=== PATIENT | female | born 1975 | race Caucasian/White ===

== ENCOUNTER 2020-11-12 17:21 | Emergency (ER) | payer SELFPAY ==
--- NOTE | 2020-11-12 17:27 | ED.SKABFB ---
HPI - Skin/Abscess/Foreign Bdy General Chief complaint: Skin/Abscess/Foreign Body Stated complaint: infected finger Time Seen by Provider: 11/12/20 17:27 Source: patient and RN notes reviewed Mode of arrival: ambulatory Limitations: no limitations History of Present Illness HPI narrative: 45-year-old female presents with concern for pain, swelling, redness near the lateral nail bed of the second digit of the right hand. Reports she has been using Betadine on the finger. Denies other intervention. She reports symptoms have been present for 5 days, but worsened yesterday. She denies any decreased sensation, range of motion in the digit. MD complaint: other Related Data Allergies Allergy/AdvReac Type Severity Reaction Status Date / Time No Known Allergies Allergy Verified 11/12/20 17:26 Review of Systems Review of Systems: Narrative: CONSTITUTIONAL: Denies malaise, chills, sweats, or fever. SKIN: Reports pain, redness, swelling at the lateral edge of the nailbed of the second digit of the right hand MUSCULOSKELETAL: Denies musculoskeletal pain, decreased range of motion NEUROLOGIC: Denies numbness, weakness All systems reviewed & are unremarkable except as noted in HPI and below PMFSH Family History Family History (Updated 09/19/14 @ 08:52 by DOCTOR UNKNOWN) Other Diabetes mellitus Hypertension Social History Social History Smoking status: Heavy tobacco smoker Alcohol intake: current Comments At time of signature, agree with nursing past medical, surgical, social and family history. There is no relevant family history pertinent to the presenting complaint Exam Narrative: Exam Narrative: GENERAL: Well-appearing, well-nourished, and in no acute distress. HEAD: Normocephalic EYES: PERRLA, conjunctivae clear NECK: Supple. CHEST: Speaks in full sentences. No respiratory distress. HEART: Regular rate and rhythm. Normal and equal peripheral pulses. EXTREMITIES: Second digit of right hand has normal strength and sensation. 5/5 strength with digit flexion, extension. Range of motion normal. No cyanosis, or edema noted. Tenderness noted at the lateral edge of the distal end of the digit near the nailbed. Skin intact. Good capillary refill and radial pulse. Distal capillary refill less than 3 seconds. SKIN: Warn, dry, intact, pink. Erythema, mild edema without fluctuance noted to the lateral edge of the nailbed of the second digit of the right hand consistent with paronychia NEURO: Alert and oriented x3. PSYCH: Normal mood and affect Course Course Emergency Course: Patient is aware of diagnosis, understands and agrees to treatment plan. Anticipatory guidance given. Patient agrees to follow-up as directed and is aware of reasons to seek care at the emergency department. Portions of this record may have been created with voice recognition software Vital Signs Vital signs: Vital Signs Temperature 97.6 F 11/12/20 17:30 Pulse Rate 87 11/12/20 17:30 Respiratory Rate 16 11/12/20 17:30 Blood Pressure 118/60 11/12/20 17:30 Pulse Oximetry 100 11/12/20 17:30 Temperature 97.6 F 11/12/20 17:30 Pulse Rate 87 11/12/20 17:30 Respiratory Rate 16 11/12/20 17:30 Blood Pressure 118/60 11/12/20 17:30 Pulse Oximetry 100 11/12/20 17:30 Reviewed. MDM - Skin/Abscess/Foreign Bdy MDM Narrative Medical decision making narrative: Exam findings show no acute concerns or changes; patient is non-toxic appearing and is in no distress. Patient is appropriate for outpatient treatment and follow-up. Critical Care Time Critical Care Time Critical Care Time: No Discharge Plan Discharge Clinical Impression: Paronychia Patient Disposition: Home, Self-Care Condition: Stable Instructions: Antibiotic Form, Paronychia (ED) Additional Instructions: Soak your nail: Soak your nail in a mixture of equal parts vinegar and water 3 or 4 times each day. This will help decrease inflammation. Apply a
[2020-11-12 17:30] VITALS: BP 118/60; PULSE 87; RESP 16; TEMP 36.4; O2SAT 100
== END 2020-11-12 17:40 | disposition home or self-care (01) ==
PROVIDERS: Emergency Provider Nurse Practitioner; PCP Internal Medicine
DX: L03.011 Cellulitis of right finger (principal)
CPT/HCPCS: 99213; G0463

== ENCOUNTER 2020-11-14 09:34 | Emergency (ER) | payer SELFPAY ==
[2020-11-14 09:51] VITALS: BP 113/81; PULSE 81; RESP 16; TEMP 36.7; O2SAT 99
--- NOTE | 2020-11-14 10:23 | ED.GENADULT ---
HPI - General Adult General Chief complaint: Skin/Abscess/Foreign Body Stated complaint: pos finger infection Time Seen by Provider: 11/14/20 10:23 Source: patient and RN notes reviewed Mode of arrival: ambulatory Limitations: no limitations History of Present Illness HPI narrative: 45-year-old female presents with complaints of RT second (index) finger swelling, warmth, tenderness, and redness for the past 7 days. Millie reports receiving treatment and on antibiotic for 2.5 days with increasing pain and swelling to RT index (second) finger for the past 48 hours. Ibuprofen and Bactrim without relief. No known injury. Denies numbness or tingling. No weakness of finger. Denies fever or chills. Denies immobility. Exacerbation is movement and palpation of finger. No relieving factor. Denies break in skin or drainage. Denies abdominal pain, nausea, or vomiting. Tolerating po intake well. No history of MRSA. Dominant hand is the RIGHT HAND. Tetanus not up-to-date. LMP 5 years ago due to IUD in place. The patient reports she have not been diagnosed with COVID-19. The patient reports she is not waiting for the results of a COVID-19 lab test. The patient reports she do not have weakness or fatigue. The patient reports she do not have a new or worsening cough or shortness of breath. Denies chest pain. The patient reports she do not have any rhinorrhea, congestion, sore throat, loss of taste or smell, and diarrhea. Denies recent traveling. Denies concerns for COVID-19 or exposures been home with limited outdoor exposure except for essential household needs, work, and return home. At this time, patient is not suspected of having COVID-19. Some parts of this dictation were generated by voice recognition software and may contain typographical and/or grammatical inaccuracies. Related Data Allergies Allergy/AdvReac Type Severity Reaction Status Date / Time No Known Allergies Allergy Verified 11/14/20 09:47 Review of Systems Review of Systems: Narrative: CONSTITUTIONAL: Denies fever, chills, sweats. EYES: Denies visual changes, redness, discharge. ENT: Denies rhinorrhea, congestion, sore throat, otalgia. CARDIOVASCULAR: Denies chest pain, palpitations, edema. RESPIRATORY: Denies dyspnea, wheezing, cough. GASTROINTESTINAL: Denies abdominal pain, nausea, vomiting, diarrhea. SKIN: Denies rash or itching. Complains of RT second (index) finger swelling, warmth, tenderness, and redness. MUSCULOSKELETAL: Denies acute back pain or myalgia. Complains of RT second (index) finger swelling, warmth, tenderness, and redness. NEUROLOGIC: Denies numbness or focal weakness. PSYCHIATRIC: Denies anxiety or depression. All other systems reviewed are negative, except as documented in HPI and below. [facility] Past Medical History Medical History (Updated 11/14/20 @ 11:18 by LUIS E Chino) No significant past medical history Surgical History Surgical History (Updated 11/14/20 @ 10:44 by LUIS E Chino) No significant past surgical history Family History Family History (Updated 11/14/20 @ 10:45 by LUIS E Chino) Father Alive and well Mother Alive and well Other Diabetes mellitus Hypertension Social History Social History (Updated 11/14/20 @ 10:46 by LUIS E Chino) Smoking packs per day: 0.5 Smoking cigarettes per day: 10.0 Years smoked: 25 Smoking pack-years: 12.50 Smoking status: Current every day smoker Tobacco type: cigarettes Second hand tobacco smoke exposure: Yes Alcohol intake: former Substance use: never Living arrangements: with family Occupation/Education: occupation 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
[2020-11-14] MEDS: TETANUS,DIPHTHERIA,AC PERTUSSIS ADULT (0.5 ML) BOOSTRIX IM (10:37)
[2020-11-14] MEDS: KETOROLAC (*BKC) 60 MG/2 ML VIAL IM (10:39)
== END 2020-11-14 11:07 | disposition home or self-care (01) ==
PROVIDERS: Emergency Provider Nurse Practitioner Family
DX: L03.012 Cellulitis of left finger (principal); Z23 Encounter for immunization; F17.210 Nicotine dependence, cigarettes, uncomplicated
CPT/HCPCS: 10060; 90471; 90715; 96372; 99213; G0463; J1885

== ENCOUNTER 2021-10-10 13:19 | Emergency (ER) | payer OTHER, SELFPAY ==
[2021-10-10 13:41] VITALS: BP 94/61; PULSE 88; RESP 16; TEMP 36.6; O2SAT 98
[2021-10-10 14:38] VITALS: BP 133/77; PULSE 99; RESP 16; TEMP 37.1; O2SAT 100
--- NOTE | 2021-10-10 14:40 | ED.DENTAL ---
HPI - Dental/Oral General Chief complaint: Dental/Oral Stated complaint: Tooth pain Source: patient Mode of arrival: ambulatory Limitations: no limitations History of Present Illness HPI Narrative: Patient presents for evaluation of right lower dental pain since yesterday. She states she had flossed a few days prior and has had pain following flossing in the past. No known dental fracture. No fever, chills, nausea, vomiting. She is a current everyday smoker and states that she has undergone gum treatments in the past. She states she has not followed up on dental cleanings as of late. She has not tried any therapies to assist with her symptoms. She states she switched from floss to water pick in past and she tolerated this much better. No additional complaints or concerns Related Data Allergies Allergy/AdvReac Type Severity Reaction Status Date / Time No Known Allergies Allergy Verified 10/10/21 13:40 Review of Systems Review of Systems: CONSTITUTIONAL: Denies fever, chills, or sweats. EYES: Denies visual changes, redness, or discharge. ENT: Reports right lower dental pain. Denies rhinorrhea, congestion, sore throat, or otalgia. CARDIOVASCULAR: Denies chest pain, palpitations, or edema. RESPIRATORY: Denies cough or dyspnea. GASTROINTESTINAL: Denies abdominal pain, nausea, vomiting, or diarrhea. GENITOURINARY: Denies dysuria or hematuria. SKIN: Denies rash or itching. MUSCULOSKELETAL: Denies back pain, joint pain, or myalgia. NEUROLOGIC: Denies headache, numbness, dizziness, or weakness. PSYCHIATRIC: Denies anxiety or depression. [facility] [place] Past Medical History Medical History Acute eczematoid otitis externa, right ear Gingivitis No significant past medical history Pain, dental Surgical History Surgical History No significant past surgical history Family History Family History Father Alive and well Mother Alive and well Other Diabetes mellitus Hypertension Social History Social History Smoking packs per day: 0.5 Smoking cigarettes per day: 10.0 Years smoked: 25 Smoking pack-years: 12.50 Smoking status: Current every day smoker Tobacco type: cigarettes Second hand tobacco smoke exposure: Yes Alcohol intake: former Substance use: never 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 HEAD: Normocephalic, atraumatic. EYES: PERRLA and EOMI. ENT: Nares clear, no rhinorrhea or epistaxis. Mucous membranes moist. Oropharynx without tonsillar hypertrophy exudate or other lesions. There is tenderness in the gumline adjacent to tooth #29. There is no visible or palpable abscess. No visualized dental fracture. No trismus. Bilateral TMs pearly henriquez nonbulging NECK: Supple. No adenopathy or masses. No carotid bruits or JVD CHEST: Clear to auscultation. No respiratory distress. No wheezes rales or rhonchi HEART: Regular rate and rhythm. No murmur heard. Normal peripheral pulses. ABDOMEN: Soft, nontender, nondistended, normal active bowel sounds. EXTREMITIES: Normal range of motion. No edema. SKIN: Warm, dry, no rash. NEURO: No focal deficits. Alert and oriented x3. PSYCH: Normal mood and affect. Course Course Emergency Course: This is a 46-year-old female who presented with complaints of right lower dental pain. She is a smoker and has a known history of gingivitis. Pain is likely secondary to flossing with underlying gum disease. She should follow-up with a dentist. Will discharge with chlorhexidine, penicillin, Tylenol with
== END 2021-10-10 14:45 | disposition home or self-care (01) ==
PROVIDERS: Emergency Provider Nurse Practitioner; PCP Internal Medicine
DX: K08.89 Other specified disorders of teeth and supporting structures (principal); K05.00 Acute gingivitis, plaque induced
CPT/HCPCS: 99213; G0463

== ENCOUNTER 2022-08-19 12:23 | Outpatient (CLI) | payer OTHER, SELFPAY ==
--- NOTE | ~2022-08-19 | MMUS_ITS ---
EXAMINATION: MM diagnostic ofe BI w davin, US breast BI complete HISTORY: Probable left breast lump. TECHNIQUE: Additional 3-D tomosynthesis images of the breasts were performed and synthetic 2-D images were generated. CAD analysis was submitted and interpreted. High resolution bilateral complete breas t ultrasound was performed. COMPARISON: None BREAST PARENCHYMAL COMPOSITION: The breasts are extremely dense, which lowers the sensitivity of mamm ography FINDINGS: MAMMOGRAPHIC FINDINGS: There are no suspicious masses, calcifications or architectural distortion in either breast to sugges t malignancy. ULTRASOUND: Complete bilateral US of all 4 quadrants of the breasts and retroareolar region was reviewed. In the right breast at 6:00, 5 cm from the nipple there is a 6 mm simple cyst. No suspicious masses are iden tified in either breast to suggest malignancy. IMPRESSION: 1. No evidence for malignancy in either breast. 2. Routine yearly screening mammogram and regular clinical breast examination are recommended. BI-RADS Category 2: Benign finding(s). Reviewed, dictated and finalized at location A. RECORDER IMPRESSION: 1. No evidence for malignancy in either breast. 2. Routine yearly screening mammogram and regular clinical breast examination a re recommended. BI-RADS Category 2: Benign finding(s).
== END 2022-08-19 12:24 | disposition home or self-care (01) ==
PROVIDERS: PCP Internal Medicine; Visit Provider Obstetrics & Gynecology
DX: N63.10 Unspecified lump in the right breast, unspecified quadrant (principal)
CPT/HCPCS: 76641; 77062; 77066; G0279

== ENCOUNTER 2023-10-05 17:55 | Outpatient (NON) | payer OTHER, SELFPAY | END 2023-10-05 17:56 | disposition home or self-care (01) | LOC: ANHLAB 17:56 | PROVIDERS: PCP Internal Medicine; Visit Provider Surgery | DX: N61.1 Abscess of the breast and nipple (principal) | CPT/HCPCS: 87070; 87075; 87077; 87181; 87205 ==

== ENCOUNTER 2023-10-27 02:47 | Day surgery (SDC) | payer OTHER, SELFPAY ==
--- NOTE | 2023-10-24 17:10 | PC.NURSE ---
Report to the Outpatient Waiting Room, entrance under the green pavilion located off [facility], at time 0830 on date 10/27/23. Planned Procedure Time: 1030. Time changes happen often and if your time is changed the preop area will call you the afternoon before. - You and your visitor will be asked to self-screen and do not enter if you have any COVID symptoms. - A mask is optional within the hospital at this time. Patients may have clear liquids (water, carbonated beverages, clear teas, apple juice) until 3 hours prior to surgery with a maximum of 20 ounces. 0730 - No food from midnight until time of surgery - Infants may have breast milk until 4 hours before surgery, formula 6 hours prior to surgery. - Children will be allowed to drink immediately following surgery. If applicable, please bring a bottle or sippy cup to assist with drinking. Juice, water, soda, and popsicles are readily available. For infants on formula, please bring formula the day of surgery. Pacifiers are allowed. Take the following medications with a SIP of water the morning of surgery: none DO NOT STOP ANY OF YOUR OTHER PRESCRIPTION MEDICATIONS PRIOR TO SURGERY ?EXCEPT THE FOLLOWING Medications to discontinue per physician multivitamin Date to take last dose Please no make-up, nail rwandan, hairspray, perfume, deodorant, or body powder the day of surgery. No jewelry (including any body piercings) or valuables the day of surgery, leave them at home. Please take a shower or bath the night before, or the morning of, surgery with an antibacterial soap. Wear comfortable, loose fitting clothing. Children are encouraged to wear pajamas. - Jewelry must be removed prior to entering the operating room. Rings and piercings that are not removed may be cut off. - The hospital will not accept responsibility for valuables. - Please leave all valuables, including medications, at home the day of surgery. If you are going home after surgery, a licensed shuttle truck driver must drive you home. - NO public transportation without another adult if you receive anesthesia. - We recommend that an adult stay with you for 24 hours following discharge. - We also recommend that you do not drive, make important decision, drink alcoholic beverages, or take any drugs that were not prescribed by your health care provider for at least 24 hours after your discharge time. For Pediatric surgeries, we recommend two adults accompany the child home. Follow any additional instructions given to you from your surgeon. If you or anyone in your household have experienced Covid symptoms in the past week, please notify your surgeon or the nurse liaison at the phone number below for possible testing. Telephone instructions given to Patient- Millie Escalante and asked if any additional questions and then verbalized understanding. Patient advised to call surgeon office or pre surgery nurse liaison [phone] if any additional questions.
[2023-10-24 17:14] VITALS: BMI 23.1
[2023-10-27] VITALS (7 sets, daily range): BP systolic 99–112; BP diastolic 55–71; PULSE 71–97; RESP 16–20; TEMP 36.2; O2SAT 96–99
[2023-10-27] MEDS: ACETAMINOPHEN 500 MG TABLET 1000 MG PO (06:24)
[2023-10-27] MEDS: LACTATED RINGERS 1,000 ML 30 ML IV CONT ×2 (06:42→08:20)
--- NOTE | 2023-10-27 07:04 | WPDHPUPDATE1 ---
History and Physical Update Update Date/Time: 10/27/23 07:04 History and Physical has been reviewed, including an updated exam of the patient. There are NO changes in the patient's condition. Risks, benefits, and alternatives have been discussed and questions answered. Patient agrees to proceed with procedure.
--- NOTE | 2023-10-27 07:11 | P.PNAN_ITS ---
Anes - Initial Pre Proc Eval Procedure: Operation Date: 10/27/23 07:30 Proposed Procedures p Excisional Biopsy of Left Chronic Subareolar Abscess and Possible Total Duct Excision - Karli Tucker MD Date/Time: 10/27/23 07:11 Surgeon: Karli Tucker MD Pre Op Diagnosis: Cyst Lt Breast Patient Data Age: 48 Gender: F Height: 1.63 m Weight: 60.9 kg Last Vital Signs Temp 97.1 F L 10/27/23 06:55 Pulse 77 10/27/23 06:55 Resp 16 10/27/23 06:55 BP 102/55 L 10/27/23 06:55 Pulse Ox 99 10/27/23 06:55 O2 Del Method Room Air 10/27/23 06:55 Allergies Allergy/AdvReac Type Severity Reaction Status Date / Time No Known Allergies Allergy Verified 10/27/23 06:11 Home Medications Medication Instructions Recorded Confirmed Type Adults Multivitamin 1 tab-cap PO DAILY 10/24/23 10/27/23 History Patient hx anesthesia problems: none Family hx anesthesia problems: none Results Review: All pre-operative results and documents have been reviewed as part of the pre- operative evaluation. [facility] Past Medical History Medical History Acute eczematoid otitis externa, right ear Gingivitis No significant past medical history Pain, dental Surgical History Surgical History No significant past surgical history Family History Family History Father Alive and well Mother Alive and well Other Diabetes mellitus Hypertension Social History Social History (Updated 10/21/23 @ 09:47 by Nadine Redman CMA) Smoking packs per day: 0.5 Smoking cigarettes per day: 10.0 Years smoked: 25 Smoking pack-years: 12.50 Smoking status: Current every day smoker Tobacco type: cigarettes Second hand tobacco smoke exposure: Yes Alcohol intake: former Substance use: never Substance use type: does not use Living arrangements: with family Occupation/Education: occupation 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 Gender identity (if verbalized by the patient): Female Sexual Orientation (if Verbalized by the Patient): Straight or Heterosexual Spiritual care concerns: No Anes - Eval Final PreProcedure Day of Procedure 10/27/23 07:11 Patient weight: normal Heart: regular rate and rhythm Lungs: clear to auscultation Airway: Mallampati scale class II Neurological: alert and oriented Last oral intake: >/= 8 hours ASA classification: II Emergent: no Anesthetic plan: proceed Anesthesia type and monitoring: general GIVS and standard monitoring Results Review: All pre-operative results and documents have been reviewed as part of the pre- operative evaluation. Informed Consent: The patient's anesthetic plan and its attendant risks and benefits were discussed with the patient/family/POA. Questions were solicited and answers provided to the satisfaction of the patient/family/POA.
[2023-10-27] MEDS: ceFAZolin 2 GM/D5W 50 ML 2 GM/50 ML BAG IVPB (07:30)
--- NOTE | 2023-10-27 08:00 | SUR.OPER ---
sent specimen down to pathology as fresh
--- NOTE | 2023-10-27 08:09 | W.PM.PROC2 ---
Procedure Note - Detailed Date of Procedure 10/27/23 Pre-op Diagnosis Chronic left subareolar abscess Post-op Diagnosis Same Procedure Performed Excisional biopsy of chronic left subareolar abscess and total duct excision Surgeon Karli Tucker MD Embalmer Apprentice Tasha Alexander PA-C Anesthesia General Description of Procedure Patient was identified in the preoperative holding area brought to the operating room suite. She was laid supine on the table in sequential compression devices were applied. Anesthesia was induced without difficulty. The left chest area was prepped and draped in a sterile fashion. A small superior periareolar incision was made and dissection was carried down through the subcutaneous tissue until the chronic retroareolar abscess capsule was identified. This was completely excised and sent to pathology as a fresh specimen. I then proceeded to excise all the central ducts as well. The previous area of drainage on the medial side of the periareolar area was dissected and no abscess or fluid collection was identified in this area this normal breast tissue. Wound was copiously irrigated with saline and hemostasis was assured. The intramammary deeper tissue was approximated with 3-0 Monocryl and interrupted fashion. The deep dermal layer was then closed with 2 interrupted 3-0 Vicryl followed by 4-0 Monocryl in a subcuticular fashion and Dermabond. Sterile dressing was applied followed by a surgical bra. Patient was awoken from anesthesia and taken to the recovery area in stable condition. All needles, instruments, and sponge counts were correct as reported by the operating room staff. Patient tolerated the procedure well with no immediate complications. Tasha Alexander PA-C was present and assisted with patient positioning and retracting throughout the case. Estimated Blood Loss 5 Pathology Yes Complications No immediate complications Condition Stable Disposition PACU [facility] Billing Surgery - Charge Forward: Surgery Billing (CPT [id number])
[2023-10-27] MEDS: LIDOCAINE HCL 1% LOCAL INJ 20 ML VIAL 4 ML INFILTRATE (08:11)
[2023-10-27] MEDS: BUPIVACAINE/EPINEPHRINE 0.5% 10 ML VIAL 4 ML INFILTRATE (08:12)
== END 2023-10-27 09:48 | disposition home or self-care (01) ==
PROVIDERS: PCP Internal Medicine; Visit Provider Surgery
PROC: (CPT 19120; principal; 2023-10-27 07:30)
DX: N61.1 Abscess of the breast and nipple (principal); F17.210 Nicotine dependence, cigarettes, uncomplicated
CPT/HCPCS: 19120; 88304; A9270; J0690; J1100; J1596; J2250; J2371; J2405; J2704; J3010; J7120; Q9968